=== PATIENT | female | born 2000 | race African-American/Black ===

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

== ENCOUNTER 2019-12-08 04:02 | Emergency (ER) | payer OTHER ==
[~2019-12-08] VITALS: Ht 165.1 cm; Wt 63.6 kg
[2019-12-08] MEDS ORDERED: FLUT44HFA IH (04:11)
[2019-12-08 05:30] VITALS: BP 116/67
[2019-12-08] MEDS ORDERED: GuaiFENesin/D-METHORPHAN [SUGAR-FREE] 200-20MG/10 ML SYRUP UDCUP PO ONE (05:30)
[2019-12-08] MEDS ORDERED: EPINEPHrine 1:1,000 [1 MG/ML] AMP SQ ONE (05:30)
[2019-12-08] MEDS ORDERED: ALBUTEROL SULFATE HFA 90 MCG/PUFF 8 GM INHALER IH ONE (05:30)
[2019-12-08] MEDS ORDERED: PredniSONE 20 MG TABLET PO ONE (05:30)
[2019-12-09] MEDS ORDERED: PRED5 PO (10:28)
== END 2019-12-08 05:54 | disposition home or self-care (01) ==
LOC: EMS 04:02
DX: J45.901 Unspecified asthma with (acute) exacerbation (principal); F32.9 Major depressive disorder, single episode, unspecified; Z79.899 Other long term (current) drug therapy
CPT/HCPCS: 94640; 96372; 99283; J0171; J7512; J3535

== ENCOUNTER 2019-12-09 10:05 | Emergency (ER) | payer OTHER ==
[~2019-12-09] VITALS: Ht 165.1 cm; Wt 65.9 kg
[~2019-12-09 10:05] MED LIST: FLUT44HFA IH
[2019-12-09] MEDS ORDERED: PRED5 PO (10:28)
[2019-12-09 11:20] VITALS: BP 108/52
== END 2019-12-09 11:49 | disposition home or self-care (01) ==
LOC: EMS 10:10
DX: J45.909 Unspecified asthma, uncomplicated (principal); F32.9 Major depressive disorder, single episode, unspecified; Z79.899 Other long term (current) drug therapy

== ENCOUNTER 2020-01-07 12:15 | Emergency (ER) | payer OTHER ==
[~2020-01-07] VITALS: Ht 165.1 cm; Wt 63.6 kg
[~2020-01-07 12:15] MED LIST changes: +PRED5 PO
[2020-01-07] MEDS ORDERED: IBUPROFEN 600 MG TABLET PO ONE (13:00)
[2020-01-07 14:25] VITALS: BP 125/70
== END 2020-01-07 14:38 | disposition home or self-care (01) ==
LOC: EMS 12:19
DX: S93.401A Sprain of unspecified ligament of right ankle, initial encounter (principal); J45.909 Unspecified asthma, uncomplicated; F32.9 Major depressive disorder, single episode, unspecified; X50.0XXA Overexertion from strenuous movement or load, initial encounter; Y93.89 Activity, other specified; Y92.89 Other specified places as the place of occurrence of the external cause; Y99.8 Other external cause status
CPT/HCPCS: 93971

== ENCOUNTER 2020-10-05 18:29 | Emergency (ER) | payer OTHER | END 2020-10-05 18:45 | disposition home or self-care (01) | LOC: EMS 18:29 | DX: Z20.822 Contact with and (suspected) exposure to COVID-19 (principal); M54.2 Cervicalgia; J45.909 Unspecified asthma, uncomplicated; F32.9 Major depressive disorder, single episode, unspecified ==

== ENCOUNTER 2024-07-14 23:40 | Emergency (ER) | payer OTHER ==
[~2024-07-14] VITALS: Ht 165.1 cm; Wt 56.8 kg
[~2024-07-14 23:40] MED LIST changes: +FLUT44H IH; -FLUT44HFA IH; +PRED-549 PO; -PRED5 PO
[2024-07-15] VITALS (7 sets, daily range): BP systolic 111; BP diastolic 51; PULSE 83–103; RESP 18; TEMP 99.4; O2SAT 98–100
[2024-07-15] MEDS ORDERED: ALBU18HF12 IH (00:15)
[2024-07-15] MEDS: PredniSONE 20 MG TABLET PO ONE (00:19)
[2024-07-15] MEDS ORDERED: 0.9% SODIUM CHLORIDE 5 ML NEB SOLUTION NEB ONE ×2 (00:21→02:08)
[2024-07-15] MEDS: ALBUTEROL SULFATE 2.5 MG/0.5 ML NEB SOLUTION NEB ONE ×2 (00:24→02:09)
[2024-07-15 00:41] LABS: COVID AG,FIA SOURCE NASAL SWAB
[2024-07-15 00:51] LABS: SARS-COV2 (COVID) ANTIGEN,FIA Negative (Negative)
[2024-07-15 00:52] LABS: INFLUENZA TYPE A NEGATIVE FOR TYPE A (NEGATIVE); INFLUENZA TYPE B NEGATIVE FOR TYPE B (NEGATIVE)
[2024-07-15] MEDS ORDERED: PRED-554 PO (03:02)
[2024-07-15] MEDS ORDERED: AZIT250T9 PO (03:02)
== END 2024-07-15 03:09 | disposition home or self-care (01) ==
LOC: EMS 23:40
DX: J40 Bronchitis, not specified as acute or chronic (principal); Z79.51 Long term (current) use of inhaled steroids; Z79.52 Long term (current) use of systemic steroids; Z20.822 Contact with and (suspected) exposure to COVID-19
CPT/HCPCS: 99284; 87426; 87804; 71045; 94640; J7512; 94060; J7613